=== PATIENT | female | born 1995 | race Caucasian/White ===

== ENCOUNTER 2017-05-12 16:35 | Emergency (ER) | payer OTHER ==
[2017-05-12 16:35] VITALS: BMI 25.4
[2017-05-12 17:02] VITALS: BP 125/70; PULSE 72; RESP 18; TEMP 98.3; O2SAT 98
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
== END 2017-05-12 18:10 | disposition home or self-care (01) ==
LOC: H.ER 16:35
DX: T30.0 Burn of unspecified body region, unspecified degree (principal)

== ENCOUNTER 2017-08-13 18:16 | Emergency (ER) | payer OTHER ==
[2017-08-13 18:17] VITALS: BMI 25.4
[2017-08-13 18:32] VITALS: BP 137/77; PULSE 54; RESP 18; TEMP 98.2; O2SAT 100
== END 2017-08-13 20:40 | disposition home or self-care (01) ==
LOC: H.ER 18:16
DX: S49.92XA Unspecified injury of left shoulder and upper arm, initial encounter (principal); X50.9XXA Other and unspecified overexertion or strenuous movements or postures, initial encounter; Y99.0 Civilian activity done for income or pay
CPT/HCPCS: 73030; 81025; 96372; 99284; J1885

== ENCOUNTER 2017-12-08 10:29 | Emergency (ER) | payer OTHER ==
[2017-12-08 10:30] VITALS: BMI 25.4
[2017-12-08 11:07] VITALS: BP 140/62; PULSE 58; RESP 16; TEMP 98.7; O2SAT 99
--- NOTE | 2017-12-08 12:15 | ED PDOC ---
HPI: CCC, URI, Sore Throat Time Seen by Provider: 12/08/17 11:19 Chief Complaint (Nursing): ENT Problem Chief Complaint (Provider): Cough, throat pain History Per: Patient History/Exam Limitations: no limitations Have you had recent travel within the past 21 days to any of the following countries: [place], [place], [place] or [place]?: No Onset/Duration Of Symptoms: Days Current Symptoms Are (Timing): Still Present Location Of Pain: Throat Sick Contacts (Context): Family Member(s) Associated Symptoms: Cough Additional Complaint(s): 22yo female with complaints of cough, sore throat and nasal congestion since last night. Patient states her son had similar symptoms and was given antibiotics. She denies any associated fever, chest pain, shortness of breath or hemoptysis. Patient has no other medical complaints. Past Medical History Reviewed: Historical Data, Nursing Documentation, Vital Signs Vital Signs: Last Vital Signs Temp 98.7 F 12/08/17 11:05 Pulse 58 L 12/08/17 11:05 Resp 16 12/08/17 11:05 BP 140/62 12/08/17 11:05 Pulse Ox 99 12/08/17 12:18 - Medical History PMH: Kidney Stones - Surgical History Surgical History: No Surg Hx - Family History Family History: States: Unknown Family Hx - Living Arrangements Living Arrangements: With Family - Immunization History Hx Tetanus Toxoid Vaccination: Yes - Home Medications Home Medications: Ambulatory Orders Medication Instructions Recorded Ibuprofen [Motrin] 600 mg PO Q6 PRN #10 tab 03/13/15 Ibuprofen [Motrin Tab] 800 mg PO Q8 PRN #20 tab 06/28/15 Ciprofloxacin/Ciprofloxa HCl 500 mg PO Q12 #14 tab 12/30/15 [Ciprofloxacin] traMADol [Ultram] 50 mg PO Q6 #16 tab 12/30/15 Ibuprofen [Motrin] 400 mg PO Q6 #30 tab 05/05/16 Tamsulosin HCl [Flomax] 0.4 mg PO DAILY #12 cap.er.24h 05/05/16 Dextromethorphan HBr [Cough 15 mg PO BID #16 capsule 08/04/16 Control] Ibuprofen [Motrin Tab] 800 mg PO Q6H PRN #20 tab 05/12/17 Silver Sulfadiazine 1% 20 gm 1 ea TOP BID #2 tube 05/12/17 [Silvadene] Albuterol HFA [Ventolin HFA 90 2 puff IH [id number] PRN #1 inhaler 08/13/17 mcg/actuation (8 g)] Azithromycin [Zithromax Tri-Mino] 500 mg PO DAILY #3 tablet 08/13/17 Naproxen 1 tab PO Q12 PRN #14 tab 08/13/17 Promethazine/Codeine 5 ml PO Q12 PRN #100 ml 08/13/17 [Codeine/Promethazine 10 MG/5 Ml-6.25 MG/5 Ml] predniSONE [predniSONE Tab] 2 tab PO DAILY #10 tab 08/13/17 Albuterol HFA [Ventolin HFA 90 2 puff IH [id number] PRN #1 inhaler 09/09/17 mcg/actuation (8 g)] Promethazine/Codeine 5 ml PO Q12 PRN #100 ml 09/09/17 [Codeine/Promethazine 10 MG/5 Ml-6.25 MG/5 Ml] predniSONE [predniSONE Tab] 2 tab PO DAILY #10 tab 09/09/17 Silver Sulfadiazine 1% 20 gm 1 ea TOP BID #2 tube 09/13/17 [Silvadene] Benzonatate [Tessalon Perle] 100 mg PO Q8 PRN #10 capsule 12/08/17 Fluticasone Propionate [Flonase] 2 spr NS DAILY PRN #1 bottle 12/08/17 - Allergies Allergies/Adverse Reactions: Allergies Allergy/AdvReac Type Severity Reaction Status Date / Time strawberry Allergy RASH Verified 12/29/15 22:48 SEAFOOD Allergy RASH Uncoded 12/29/15 22:48 seafood Allergy RASH Uncoded 05/05/16 10:17 Review of Systems ROS Statement: Except As Marked, All Systems Reviewed And Found Negative Constitutional: Negative for: Fever, Chills ENT: Positive for: Throat Pain Cardiovascular: Negative for: Chest Pain Respiratory: Positive for: Cough. Negative for: Shortness of Breath, Hemoptysis Physical Exam - Reviewed Nursing Documentation Reviewed: Yes Vital Signs Reviewed: Yes - Physical Exam Appears: Positive for: Non-toxic, No Acute Distress Skin: Positive for: Normal Color Eye Exam: Positive for: EOMI, PERRL ENT: Positive for: Normal ENT Inspection. Negative for: Pharyngeal Erythema, Tonsillar Exudate, Tonsillar Swelling Neck: Positive for: Supple Cardiovascular/Chest: Positive for: Regular Rate, Rhythm Respiratory: Positive for: Normal Breath Sounds. Negative for: Wheezing Neurologic/Psych: Positive for: Alert, Oriented - ECG O2 Sat by Pulse Oximetry: 99 (RA) Pulse Ox Interpretation: Normal Medical Decision Making Medical Decision Making: Impression: URI Plan: -- Rapid Flu -- Rapid Strep Scribe Attestation: Documented by Rashida Man acting as a scribe for LEONARDO Hummel Provider Attestation: All medical record entries made by the Scribe were at my direction and personally dictated by me. I have reviewed the chart and agree that the record accurately reflects my personal performance of the history, physical exam, medical decision making, and the department course for this patient. I have also personally directed, reviewed, and agree with the discharge instructions and disposition. Disposition - Clinical Impression Clinical Impression: URI (upper respiratory infection) - Patient ED Disposition Is Patient to be Admitted: No - Disposition Referrals: [facility] [Outside] Disposition: Routine/Home Disposition Time: 13:30 Condition: STABLE Prescriptions: Benzonatate [Tessalon Perle] 100 mg PO Q8 PRN #10 capsule PRN Reason: Cough Fluticasone Propionate [Flonase] 2 spr NS DAILY PRN #1 bottle PRN Reason: Allergy Symptoms Instructions: Upper Respiratory Infection (ED) Forms: [employer] (Serbian) Print Language: UKRAINIAN
== END 2017-12-08 14:28 | disposition home or self-care (01) ==
LOC: H.ER 10:29
DX: J06.9 Acute upper respiratory infection, unspecified (principal)

== ENCOUNTER 2018-02-07 14:13 | Emergency (ER) | payer MEDICAID, OTHER ==
[2018-02-07 14:13] VITALS: BMI 25.4
[2018-02-07 14:19] VITALS: PULSE 78
--- NOTE | 2018-02-07 14:27 | ED PDOC ---
HPI: Female Pain Time Seen by Provider: 02/07/18 14:26 Chief Complaint (Nursing): Female Genitourinary Chief Complaint (Provider): abd pain History Per: Patient Additional Complaint(s): 22-year-old female with history of kidney stones presents with LLQ pain, left flank pain and urinary frequency for the past 2 days. She denies fever or chills. She is concerned she may be passing a kidney stone as she has history of same. Patient denies any nausea or vomiting. She has not taken any medicine for pain relief. PMD: Dr. Bart Veliz Past Medical History Reviewed: Historical Data, Nursing Documentation, Vital Signs Vital Signs: Last Vital Signs Temp 97.8 F 02/07/18 14:16 Pulse 78 02/07/18 14:16 Resp 18 02/07/18 14:16 BP 126/78 02/07/18 14:16 Pulse Ox 99 02/07/18 14:16 - Medical History PMH: Kidney Stones - Surgical History Other surgeries: right foot surgery - Family History Family History: States: Unknown Family Hx - Living Arrangements Living Arrangements: With Family - Social History Current smoker - smoking cessation education provided: Yes Alcohol: None Drugs: Denies - Immunization History Hx Tetanus Toxoid Vaccination: Yes - Home Medications Home Medications: Ambulatory Orders Medication Instructions Recorded Ibuprofen [Motrin] 600 mg PO Q6 PRN #10 tab 03/13/15 Ibuprofen [Motrin Tab] 800 mg PO Q8 PRN #20 tab 06/28/15 Ciprofloxacin/Ciprofloxa HCl 500 mg PO Q12 #14 tab 12/30/15 [Ciprofloxacin] traMADol [Ultram] 50 mg PO Q6 #16 tab 12/30/15 Ibuprofen [Motrin] 400 mg PO Q6 #30 tab 05/05/16 Tamsulosin HCl [Flomax] 0.4 mg PO DAILY #12 cap.er.24h 05/05/16 Dextromethorphan HBr [Cough 15 mg PO BID #16 capsule 08/04/16 Control] Ibuprofen [Motrin Tab] 800 mg PO Q6H PRN #20 tab 05/12/17 Silver Sulfadiazine 1% 20 gm 1 ea TOP BID #2 tube 05/12/17 [Silvadene] Albuterol HFA [Ventolin HFA 90 2 puff IH [id number] PRN #1 inhaler 08/13/17 mcg/actuation (8 g)] Azithromycin [Zithromax Tri-Mino] 500 mg PO DAILY #3 tablet 08/13/17 Naproxen 1 tab PO Q12 PRN #14 tab 08/13/17 Promethazine/Codeine 5 ml PO Q12 PRN #100 ml 08/13/17 [Codeine/Promethazine 10 MG/5 Ml-6.25 MG/5 Ml] predniSONE [predniSONE Tab] 2 tab PO DAILY #10 tab 08/13/17 Albuterol HFA [Ventolin HFA 90 2 puff IH [id number] PRN #1 inhaler 09/09/17 mcg/actuation (8 g)] Promethazine/Codeine 5 ml PO Q12 PRN #100 ml 09/09/17 [Codeine/Promethazine 10 MG/5 Ml-6.25 MG/5 Ml] predniSONE [predniSONE Tab] 2 tab PO DAILY #10 tab 09/09/17 Silver Sulfadiazine 1% 20 gm 1 ea TOP BID #2 tube 09/13/17 [Silvadene] Benzonatate [Tessalon Perle] 100 mg PO Q8 PRN #10 capsule 12/08/17 Fluticasone Propionate [Flonase] 2 spr NS DAILY PRN #1 bottle 12/08/17 Ibuprofen [Motrin] 600 mg PO Q6 PRN #15 tab 02/07/18 Levofloxacin [Levaquin] 500 mg PO DAILY #7 tablet 02/07/18 - Allergies Allergies/Adverse Reactions: Allergies Allergy/AdvReac Type Severity Reaction Status Date / Time strawberry Allergy RASH Verified 12/29/15 22:48 SEAFOOD Allergy RASH Uncoded 12/29/15 22:48 seafood Allergy RASH Uncoded 05/05/16 10:17 Review of Systems ROS Statement: Except As Marked, All Systems Reviewed And Found Negative Constitutional: Negative for: Fever, Chills Respiratory: Negative for: Cough Gastrointestinal: Positive for: Abdominal Pain. Negative for: Nausea, Vomiting , Diarrhea, Constipation, Melena, Hematochezia, Hematemesis, Rectal Pain Genitourinary Female: Positive for: Dysuria, Frequency, Hematuria. Negative for : Incontinence, Vaginal Discharge, Vaginal Bleeding Physical Exam - Reviewed Nursing Documentation Reviewed: Yes Vital Signs Reviewed: Yes - Physical Exam Appears: Positive for: Well, Non-toxic, No Acute Distress Skin: Negative for: Rash Eye Exam: Positive for: Normal appearance Cardiovascular/Chest: Positive for: Regular Rate, Rhythm Respiratory: Positive for: Normal Breath Sounds Gastrointestinal/Abdominal: Positive for: Soft, Tenderness (LLQ). Negative for : Distended, Guarding, Rebound Back: Positive for: L CVA Tenderness. Negative for: R CVA Tenderness Extremity: Positive for: Normal ROM Neurologic/Psych: Positive for: Alert, Oriented - Laboratory Results Result Diagrams: 02/07/18 14:45 02/07/18 14:45 Urine POC: Negative Urine dip results: Positive for: Leukocyte Esterase (moderate), Blood (moderate) , Nitrate (positive). Negative for: Ketones, Glucose, Bilirubin, Protein - ECG O2 Sat by Pulse Oximetry: 99 Pulse Ox Interpretation: Normal - Other Rad CT abd and pelvis without contrast X-Ray: Read By Radiologist X-Ray Interpretation: see below Medical Decision Making Medical Decision Makin22 year old with abd pain, flank pain and dysuria Plan: CBC CMP Blood cultures IVF IV toradol UA/Urine culture CT abd and pelvis without contrast U dip positive for nitrates and leukocytes - 1 gram rocephin given IV. CT: IMPRESSION: A punctate nonobstructing intrarenal calculus identified at the upper midpole left kidney with both kidneys otherwise unremarkable. Lack venous contrast limits evaluation. No perinephric reaction. Urinary bladder is mildly distended with the wall poorly evaluated. No radiodense urolithiasis in the urinary bladder or either ureter. No ascites, measure edema or bowel obstruction appreciated grossly. Study is limited evaluation outside of the concept of urolithiasis/obstructive uropathy due to lack of contrast agents. Other than solitary intrarenal calculus at the left kidney, exam not dramatically changed her prior unenhanced CT 12/30/2015. Patient aware of all diagnostic testing results. She states that she feels better after meds given in ED. Prescriptions given for Levaquin and Motrin. Advised fluids, rest and follow up with PMD in 2-3 days. Disposition - Clinical Impression Clinical Impression: UTI (urinary tract infection), Pyelonephritis - Patient ED Disposition Is Patient to be Admitted: No Counseled Patient/Family Regarding: Studies Performed, Diagnosis, Need For Followup, Rx Given - Disposition Referrals: Bart Veliz MD [Staff Provider] - Disposition: Routine/Home Disposition Time: 16:19 Condition: STABLE Additional Instructions: Take rx meds as directed. Drink plenty of fluids. Follow up in 2-3 days with primary care doctor. Prescriptions: Ibuprofen [Motrin] 600 mg PO Q6 PRN #15 tab PRN Reason: Pain, Moderate (4-7) Levofloxacin [Levaquin] 500 mg PO DAILY #7 tablet Instructions: Urinary Tract Infection, Adult (DC), Kidney Infection Forms: [employer] (Syriac) Results - Lab Results Lab Results: 02/07/18 02/07/18 02/07/18 14:45 14:45 14:45 WBC 14.1 H D RBC 4.68 Hgb 13.7 Hct 40.6 MCV 86.7 MCH 29.3 MCHC 33.7 RDW 12.8 Plt Count 232 MPV 10.4 Neut % (Auto) 74.5 Lymph % (Auto) 17.9 L [place] % (Auto) 6.2 Eos % (Auto) 0.9 Baso % (Auto) 0.5 Neut # (Auto) 10.5 H Lymph # (Auto) 2.5 [place] # (Auto) 0.9 H Eos # (Auto) 0.1 Baso # (Auto) 0.1 Sodium 141 Potassium 4.1 Chloride 105 Carbon Dioxide 23 Anion Gap 17 BUN 12 Creatinine 0.8 Est GFR ( Amer) > 60 Est GFR (Non-Af Amer) > 60 Random Glucose 114 H Calcium 9.3 Total Bilirubin 0.4 AST 21 ALT 26 Alkaline Phosphatase 49 Total Protein 7.2 Albumin 3.9 Globulin 3.3 Albumin/Globulin Ratio 1.2 Urine Color Yellow Urine Clarity Cloudy Urine pH 6.0 Ur Specific [place] 1.021 Urine Protein 100 Urine Glucose (UA) Neg Urine Ketones Negative Urine Blood Moderate Urine Nitrate Positive H Urine Bilirubin Negative Urine Urobilinogen 0.2-1.0 Ur Leukocyte Esterase Mod Urine RBC (Auto) 38 H Urine Microscopic WBC 239 H Ur Squamous Epith Cells 1 Urine Bacteria Occ H Hyaline Casts 0-2
[2018-02-07] MEDS ORDERED: Sodium Chloride 0.9% 1,000 ML IV STA (14:52)
[2018-02-07 15:16] LABS: BASO # 0.1 K/uL (0.0-0.2); BASO % 0.5 % (0.0-2.0); EOS # 0.1 K/uL (0.0-0.7); EOS % 0.9 % (0.0-4.0); HEMOGLOBIN 13.7 g/dL (12.0-16.0); LYMPH # 2.5 K/uL (1.0-4.3); LYMPH % 17.9 % (20.0-40.0); MEAN CELL VOLUME 86.7 fl (81.0-99.0); MEAN CORPUSCULAR HEMOGLOBIN 29.3 pg (27.0-31.0); MEAN CORPUSCULAR HGB CONC 33.7 g/dL (33.0-37.0); MEAN PLATELET VOLUME 10.4 fl (7.2-11.7); MONO # 0.9 K/uL (0.0-0.8); MONO % 6.2 % (0.0-10.0); NEUT # 10.5 K/uL (1.8-7.0); NEUT % 74.5 % (50.0-75.0); RBC 4.68 Mil/uL (3.80-5.20); RED CELL DISTRIBUTION WIDTH 12.8 % (11.5-14.5); WHITE BLOOD COUNT 14.1 K/uL (4.8-10.8)
[2018-02-07 15:25] LABS: ALB/GLOB RATIO 1.2 (1.0-2.1); ALBUMIN 3.9 g/dL (3.5-5.0); ALT/SGPT 26 U/L (9-52); AST/SGOT 21 U/L (14-36); BLOOD UREA NITROGEN 12 mg/dl (7-17); CALCIUM 9.3 mg/dL (8.4-10.2); GFR AFRICAN-AMERICAN > 60; GFR NON-AFRICAN AMERICAN > 60; SQUAMOUS EPITHIAL 1 /hpf (0-5); URINE BACTERIA OCC (<OCC); URINE BILIRUBIN NEGATIVE (NEGATIVE); URINE BLOOD MODERATE (NEGATIVE); URINE CLARITY CLOUDY (Clear); URINE COLOR YELLOW (YELLOW); URINE GLUCOSE (UA) NEG (Normal); URINE HYALINE CAST 0-2 /hpf (0-2); URINE LEUKOCYTE ESTERASE MOD Leu/uL (Negative); URINE PROTEIN 100 mg/dL (NEGATIVE); URINE UROBILINOGEN 0.2-1.0 mg/dL (0.2-1.0)
--- NOTE | 2018-02-07 16:03 | CT ---
PROCEDURE: CT Abdomen and Pelvis without intravenous contrast HISTORY: flank pain, hematuria COMPARISON: Unenhanced abdomen pelvis CT examination 12/30/2015 TECHNIQUE: Helical CT of the abdomen and pelvis was performed without oral or intravenous contrast as per referring physician request. Contrast Dose: None Radiation dose: Total exam DLP = 579.48 mGy-cm. This CT exam was performed using one or more of the following dose reduction techniques: Automated exposure control, adjustment of the mA and/or kV according to patient size, and/or use of iterative reconstruction technique. FINDINGS: LOWER THORAX: Unremarkable. LIVER: Unremarkable. No gross lesion or ductal dilatation. GALLBLADDER AND BILE DUCTS: Unremarkable. PANCREAS: Unremarkable. No gross lesion or ductal dilatation. SPLEEN: Unremarkable. ADRENALS: Unremarkable. No mass. KIDNEYS AND URETERS: The right kidney appears unremarkable as imaged. There is a punctate intrarenal calculi identified at the upper midpole left kidney best seen image 65 series 3. This is a nonobstructive calculus with no definite additional radiodense urolithiasis bilaterally. No left perinephric reaction or hydronephrosis. The bilateral ureters appear normal in caliber with the urinary bladder appearing mildly distended and otherwise limited evaluation due to its lack of adequate distention. Mural thickening is not completely excluded though this is not favored. Clinically correlate further. . VASCULATURE: Unremarkable. No aortic aneurysm. BOWEL: Unremarkable. No obstruction. No gross mural thickening. APPENDIX: Unremarkable. Normal appendix. PERITONEUM: Unremarkable. No free fluid. No free air. LYMPH NODES: Unremarkable. No enlarged lymph nodes. BLADDER: As above in renal section. REPRODUCTIVE: Unremarkable. BONES: No acute fracture. OTHER FINDINGS: None. IMPRESSION: A punctate nonobstructing intrarenal calculus identified at the upper midpole left kidney with both kidneys otherwise unremarkable. Lack venous contrast limits evaluation. No perinephric reaction. Urinary bladder is mildly distended with the wall poorly evaluated. No radiodense urolithiasis in the urinary bladder or either ureter. No ascites, measure edema or bowel obstruction appreciated grossly. Study is limited evaluation outside of the concept of urolithiasis/obstructive uropathy due to lack of contrast agents. Other than solitary intrarenal calculus at the left kidney, exam not dramatically changed her prior unenhanced CT 12/30/2015.
[2018-02-07] MEDS ORDERED: cefTRIAXone (Rocephin) 1 gm Inj ONE (16:25)
[2018-02-07 17:43] VITALS: BP 128/78; RESP 19; TEMP 97; O2SAT 98
== END 2018-02-07 17:47 | disposition home or self-care (01) ==
LOC: H.ER 14:13
DX: N39.0 Urinary tract infection, site not specified (principal); N12 Tubulo-interstitial nephritis, not specified as acute or chronic
CPT/HCPCS: 74176; 80053; 81003; 81025; 85025; 87040; 87086; 87181; 99283; J0696; J1885; J7040

== ENCOUNTER 2018-05-01 21:54 | Emergency (ER) | payer MEDICAID, OTHER ==
[2018-05-01 21:54] VITALS: BMI 25.4
[2018-05-01 22:02] VITALS: RESP 18
--- NOTE | 2018-05-01 22:03 | ED PDOC ---
HPI: General Adult Time Seen by Provider: 05/01/18 22:03 Chief Complaint (Nursing): Back Pain Chief Complaint (Provider): neck pain History Per: Patient Additional Complaint(s): 22 year old female presents with pain and muscle spasm to neck s/p falling asleep last night on her boyfriend's arm. Patient woke up today with pain and stiffness. She took 2 800 mg motrin today but this did not help. Patient also applied ice to affected area but this did not help either. No associated headache, dizziness or vision changes. PMD: Dr. Bart Veliz Past Medical History Reviewed: Historical Data, Nursing Documentation, Vital Signs Vital Signs: Last Vital Signs Temp 97.6 F 05/01/18 21:58 Pulse 66 05/01/18 21:58 Resp 18 05/01/18 21:58 BP Pulse Ox 98 05/01/18 22:10 - Medical History PMH: Kidney Stones - Surgical History Other surgeries: foot surgery - Family History Family History: States: No Known Family Hx - Living Arrangements Living Arrangements: With Family - Social History Current smoker - smoking cessation education provided: Yes Alcohol: None Drugs: Denies - Immunization History Hx Tetanus Toxoid Vaccination: Yes - Home Medications Home Medications: Ambulatory Orders Medication Instructions Recorded Ibuprofen [Motrin] 600 mg PO Q6 PRN #10 tab 03/13/15 Ibuprofen [Motrin Tab] 800 mg PO Q8 PRN #20 tab 06/28/15 Ciprofloxacin/Ciprofloxa HCl 500 mg PO Q12 #14 tab 12/30/15 [Ciprofloxacin] traMADol [Ultram] 50 mg PO Q6 #16 tab 12/30/15 Ibuprofen [Motrin] 400 mg PO Q6 #30 tab 05/05/16 Tamsulosin HCl [Flomax] 0.4 mg PO DAILY #12 cap.er.24h 05/05/16 Dextromethorphan HBr [Cough 15 mg PO BID #16 capsule 08/04/16 Control] Ibuprofen [Motrin Tab] 800 mg PO Q6H PRN #20 tab 05/12/17 Silver Sulfadiazine 1% 20 gm 1 ea TOP BID #2 tube 05/12/17 [Silvadene] Albuterol HFA [Ventolin HFA 90 2 puff IH [id number] PRN #1 inhaler 08/13/17 mcg/actuation (8 g)] Azithromycin [Zithromax Tri-Mino] 500 mg PO DAILY #3 tablet 08/13/17 Naproxen 1 tab PO Q12 PRN #14 tab 08/13/17 Promethazine/Codeine 5 ml PO Q12 PRN #100 ml 08/13/17 [Codeine/Promethazine 10 MG/5 Ml-6.25 MG/5 Ml] predniSONE [predniSONE Tab] 2 tab PO DAILY #10 tab 08/13/17 Albuterol HFA [Ventolin HFA 90 2 puff IH [id number] PRN #1 inhaler 09/09/17 mcg/actuation (8 g)] Promethazine/Codeine 5 ml PO Q12 PRN #100 ml 09/09/17 [Codeine/Promethazine 10 MG/5 Ml-6.25 MG/5 Ml] predniSONE [predniSONE Tab] 2 tab PO DAILY #10 tab 09/09/17 Silver Sulfadiazine 1% 20 gm 1 ea TOP BID #2 tube 09/13/17 [Silvadene] Benzonatate [Tessalon Perle] 100 mg PO Q8 PRN #10 capsule 12/08/17 Fluticasone Propionate [Flonase] 2 spr NS DAILY PRN #1 bottle 12/08/17 Ibuprofen [Motrin] 600 mg PO Q6 PRN #15 tab 02/07/18 Levofloxacin [Levaquin] 500 mg PO DAILY #7 tablet 02/07/18 Diclofenac Epolamine [Flector] 1 each TD BID #30 patch 05/01/18 Metaxalone [Skelaxin] 800 mg PO TID PRN #20 tablet 05/01/18 traMADol [Ultram] 50 mg PO Q6H PRN #15 tab 05/01/18 - Allergies Allergies/Adverse Reactions: Allergies Allergy/AdvReac Type Severity Reaction Status Date / Time strawberry Allergy RASH Verified 05/01/18 21:58 SEAFOOD Allergy RASH Uncoded 05/01/18 21:58 seafood Allergy RASH Uncoded 05/01/18 21:58 Review of Systems ROS Statement: Except As Marked, All Systems Reviewed And Found Negative Constitutional: Negative for: Fever Cardiovascular: Negative for: Chest Pain Respiratory: Negative for: Cough Gastrointestinal: Negative for: Nausea, Vomiting Musculoskeletal: Positive for: Neck Pain Neurological: Negative for: Headache, Dizziness Physical Exam - Reviewed Nursing Documentation Reviewed: Yes Vital Signs Reviewed: Yes - Physical Exam Appears: Positive for: Well, Non-toxic, No Acute Distress Skin: Positive for: Normal Color. Negative for: Rash Eye Exam: Positive for: Normal appearance Neck: Positive for: Pain On Movement Of Neck (Palpable muscle spasm and tenderness to right lateral paraspinal region with decreased range of motion of cervical spine, no midline tenderness or step) Cardiovascular/Chest: Positive for: Regular Rate, Rhythm Respiratory: Positive for: Normal Breath Sounds. Negative for: Wheezing, Respiratory Distress Back: Negative for: L CVA Tenderness, R CVA Tenderness, Vertebral Tenderness Neurologic/Psych: Positive for: Alert, Oriented - Laboratory Results Urine POC: Negative - ECG O2 Sat by Pulse Oximetry: 98 Pulse Ox Interpretation: Normal Medical Decision Making Medical Decision Making: Impression: torticollis Plan: test IM toradol PO tylenol 975 mg PO valium 5 mg PO Tramdol 50 mg Patient states neck feels more relaxed after meds but she still has slight pain. Lidoderm patch applied. Patient advised to apply warm compresses to affected area. Rx given for flector patch, skelaxin and tramadol. Advised rest PMD follow up in 2-3 days. Disposition - Clinical Impression Clinical Impression: Torticollis, acute - Patient ED Disposition Is Patient to be Admitted: No Counseled Patient/Family Regarding: Studies Performed, Diagnosis, Need For Followup, Rx Given - Disposition Referrals: Bart Veliz MD [Family Provider] - Ameena Nguyen MD [Staff Provider] - Disposition Time: 22:46 Condition: IMPROVED Additional Instructions: Take rx meds as directed as needed for pain Apply warm compresses to affected area. Follow up with primary care doctor or with orthopedist for any persistent symptoms Prescriptions: Diclofenac Epolamine [Flector] 1 each TD BID #30 patch Metaxalone [Skelaxin] 800 mg PO TID PRN #20 tablet PRN Reason: Muscle Spasm traMADol [Ultram] 50 mg PO Q6H PRN #15 tab PRN Reason: Pain, Moderate (4-7) Instructions: Torticollis, Adult, Neck Stretches Forms: [employer] (Azeri), [facility] ED School/Work Excuse
[2018-05-01] MEDS ORDERED: Lidocaine 5% Patch TD STA (22:42)
[2018-05-01] MEDS ORDERED: Lidocaine 5% Patch TD ONE (22:50)
[2018-05-01 23:22] VITALS: BP 118/70; PULSE 74; TEMP 98.1; O2SAT 100
== END 2018-05-01 23:21 | disposition home or self-care (01) ==
LOC: H.ER 21:54
DX: M43.6 Torticollis (principal)
CPT/HCPCS: 81025; 96372; 99283; J1885

== ENCOUNTER 2018-06-28 17:29 | Emergency (ER) | payer MEDICAID, OTHER ==
[2018-06-28 17:29] VITALS: BMI 25.4
[2018-06-28 17:35] VITALS: BP 136/82; PULSE 82; RESP 16; TEMP 98.1; O2SAT 99
--- NOTE | 2018-06-28 19:01 | ED PDOC ---
HPI: Female Pain Chief Complaint (Provider): "My stomach hurts and I started bleeding this morning" History Per: Patient History/Exam Limitations: no limitations Onset/Duration Of Symptoms: Hrs Current Symptoms Are (Timing): Still Present Severity: Moderate Pain Scale Rating Of: 10 Quality Of Discomfort: Sharp, Cramping Associated Symptoms: Back Pain. denies: Fever, Chills, Nausea, Vomiting, Diarrhea, Constipation Alleviating Factors: None Additional History Per: Patient Additional Complaint(s): 22 y/o female w/ pmhx significant for kidney stones and chlamydia c/o intermittent suprapubic pain and vaginal bleeding that started this morning. The pain sharp/crampy, 10/10 in severity, and radiates to the left flank, worsens during sexual activity. Denies alleviating factors. She denies nausea, vomiting, diarrhea, constipation. She states that she had white discharge 1 week prior; denies foul odor. LMP June 04, 2018. She is not currently sexually active. Abnormal Vaginal Bleeding: Yes Last Menstral Period: June 04, 2018 : 1 Para: 1 Miscarriage: 0 <Rehana Michael - Last Filed: 06/28/18 19:14> <Ryder Uriostegui III - Last Filed: 06/30/18 14:02> Time Seen by Provider: 06/28/18 18:18 Chief Complaint (Nursing): Female Genitourinary Supervising Attending Note - Attestation: I have personally seen and examined this patient.: Yes I have fully participated in the care of the patient.: Yes I have reviewed all pertinent clinical information, including history, physical exam and plan: Yes - Notes: Notes:: pt seen and examined w patient w resident agree w findings, i performed pelvic w rating specialist EDT <Ryder Uriostegui III - Last Filed: 06/30/18 14:02> Past Medical History Vital Signs: Last Vital Signs Temp 98.1 F 06/28/18 17:32 Pulse 82 06/28/18 17:32 Resp 16 06/28/18 17:32 BP 136/82 06/28/18 17:32 Pulse Ox 99 06/28/18 17:32 - Medical History PMH: Asthma, Kidney Stones - Family History Family History: States: Unknown Family Hx - Social History Current smoker - smoking cessation education provided: Yes (1/2 ppd X 4 years) Alcohol: Social Drugs: Denies - Immunization History Hx Tetanus Toxoid Vaccination: Yes <Rehana Michael - Last Filed: 06/28/18 19:14> Vital Signs: Last Vital Signs Temp 98.1 F 06/28/18 17:32 Pulse 82 06/28/18 17:32 Resp 16 06/28/18 17:32 BP 136/82 06/28/18 17:32 Pulse Ox 99 06/28/18 19:18 <Ryder Uriostegui III - Last Filed: 06/30/18 14:02> - Home Medications Home Medications: Ambulatory Orders Medication Instructions Recorded Ibuprofen [Motrin] 600 mg PO Q6 PRN #10 tab 03/13/15 Ibuprofen [Motrin Tab] 800 mg PO Q8 PRN #20 tab 06/28/15 Ciprofloxacin/Ciprofloxa HCl 500 mg PO Q12 #14 tab 12/30/15 [Ciprofloxacin] traMADol [Ultram] 50 mg PO Q6 #16 tab 12/30/15 Ibuprofen [Motrin] 400 mg PO Q6 #30 tab 05/05/16 Tamsulosin HCl [Flomax] 0.4 mg PO DAILY #12 cap.er.24h 05/05/16 Dextromethorphan HBr [Cough 15 mg PO BID #16 capsule 08/04/16 Control] Ibuprofen [Motrin Tab] 800 mg PO Q6H PRN #20 tab 05/12/17 Silver Sulfadiazine 1% 20 gm 1 ea TOP BID #2 tube 05/12/17 [Silvadene] Albuterol HFA [Ventolin HFA 90 2 puff IH [id number] PRN #1 inhaler 08/13/17 mcg/actuation (8 g)] Azithromycin [Zithromax Tri-Mino] 500 mg PO DAILY #3 tablet 08/13/17 Naproxen 1 tab PO Q12 PRN #14 tab 08/13/17 Promethazine/Codeine 5 ml PO Q12 PRN #100 ml 08/13/17 [Codeine/Promethazine 10 MG/5 Ml-6.25 MG/5 Ml] predniSONE [predniSONE Tab] 2 tab PO DAILY #10 tab 08/13/17 Albuterol HFA [Ventolin HFA 90 2 puff IH [id number] PRN #1 inhaler 09/09/17 mcg/actuation (8 g)] Promethazine/Codeine 5 ml PO Q12 PRN #100 ml 09/09/17 [Codeine/Promethazine 10 MG/5 Ml-6.25 MG/5 Ml] predniSONE [predniSONE Tab] 2 tab PO DAILY #10 tab 09/09/17 Silver Sulfadiazine 1% 20 gm 1 ea TOP BID #2 tube 09/13/17 [Silvadene] Benzonatate [Tessalon Perle] 100 mg PO Q8 PRN #10 capsule 12/08/17 Fluticasone Propionate [Flonase] 2 spr NS DAILY PRN #1 bottle 12/08/17 Ibuprofen [Motrin] 600 mg PO Q6 PRN #15 tab 02/07/18 Levofloxacin [Levaquin] 500 mg PO DAILY #7 tablet 02/07/18 Diclofenac Epolamine [Flector] 1 each TD BID #30 patch 05/01/18 Metaxalone [Skelaxin] 800 mg PO TID PRN #20 tablet 05/01/18 traMADol [Ultram] 50 mg PO Q6H PRN #15 tab 05/01/18 Ciprofloxacin [Cipro] 500 mg PO BID #14 tab 06/28/18 Naproxen [Naprosyn] 500 mg PO BID PRN #14 tablet 06/28/18 - Allergies Allergies/Adverse Reactions: Allergies Allergy/AdvReac Type Severity Reaction Status Date / Time strawberry Allergy RASH Verified 06/28/18 17:32 SEAFOOD Allergy RASH Uncoded 06/28/18 17:32 seafood Allergy RASH Uncoded 06/28/18 17:32 Review of Systems Constitutional: Positive for: Weakness, Malaise. Negative for: Fever Cardiovascular: Negative for: Palpitations Respiratory: Negative for: Shortness of Breath Gastrointestinal: Positive for: Abdominal Pain. Negative for: Nausea, Vomiting , Diarrhea, Constipation Genitourinary Female: Positive for: Vaginal Discharge, Vaginal Bleeding, Pelvic Pain. Negative for: Dysuria, Frequency, Incontinence Musculoskeletal: Positive for: Back Pain Neurological: Positive for: Numbness <Rehana Michael - Last Filed: 06/28/18 19:14> Physical Exam - Reviewed Nursing Documentation Reviewed: Yes Vital Signs Reviewed: Yes - Physical Exam Appears: Positive for: No Acute Distress Skin: Positive for: Normal Color, Warm, Dry. Negative for: Diaphoresis Cardiovascular/Chest: Positive for: Regular Rate, Rhythm. Negative for: Bradycardia, Tachycardia Respiratory: Positive for: Normal Breath Sounds Gastrointestinal/Abdominal: Positive for: Bowel Sounds, Soft, Tenderness. Negative for: Distended, Guarding, Rebound Back: Positive for: L CVA Tenderness. Negative for: R CVA Tenderness Extremity: Negative for: Tenderness, Pedal Edema, Calf Tenderness Lymphatic: Negative for: Adenopathy <Rehana Michael - Last Filed: 06/28/18 19:14> - Laboratory Results Result Diagrams: 06/28/18 19:07 Urine POC: Negative - ECG O2 Sat by Pulse Oximetry: 99 - Progress ED Course And Treament: Assessment: 22 y/o female c/o suprapubic pain. Plan: Urine Dipstick/UA CBC/CMP Urine hcg- negative pelvic exam Transvaginal u/s Abd/pelvic CT w/o contrast <Rehana Michael - Last Filed: 06/28/18 19:14> - Laboratory Results Result Diagrams: 06/28/18 19:07 06/28/18 19:07 <Ryder Uriostegui III - Last Filed: 06/30/18 14:02> Medical Decision Making Medical Decision Making: attending note Seen and examined w resident Pelvic exam trace blood no discharge, ?polyp mass on cervix approx 0.5cm nonfriable at 11:00, os closed Minimal CMT Explained mandatory need for followup w [facility] as lesion concerning and may need biospy EXAM: US Pelvis, Transvaginal CLINICAL HISTORY: 22 years old, female; Pain; Pelvic pain; Additional info: Pelvic pain l flank pain TECHNIQUE: Real-time transvaginal pelvic ultrasound (complete) with image documentation. Transvaginal imaging was used for better evaluation of the endometrium and adnexa. COMPARISON: CT - ABD PELVIS W/O PO OR IV CONT 12/30/2015 1:49 AM FINDINGS: Uterus/cervix: Unremarkable. Normal endometrial stripe thickness is 7 mm. No myometrial mass. Uterus measures 7.8 cm x 4.2 cm x 5.1 cm Right ovary: Unremarkable. No mass. Normal blood flow. 3 cm x 1.6 cm x 1.4 cm Left ovary: Unremarkable. No mass. Normal blood flow. 2 cm x 1.2 cm x 2 cm Free fluid: A small volume of free fluid is seen around the uterus. IMPRESSION: Normal pelvic ultrasound. Thank you for allowing us to participate in the care of your patient. Dictated and Authenticated by: Amador Mendoza MD 06/28/2018 7:50 PM Eastern Time ([place] & [place]) ct: IMPRESSION: 1. 3 mm nonobstructing left renal stone. No hydronephrosis. 2. There are a few prominent right lower quadrant mesenteric lymph nodes. Although nonspecific, findings can be seen with mesenteric adenitis. Thank you for allowing us to participate in the care of your patient. Dictated and Authenticated by: Dmitry Thompson MD 06/28/2018 8:10 PM Eastern Time ([place] & [place]) <Ryder Uriostegui III - Last Filed: 06/30/18 14:02> Disposition <Rehana Michael - Last Filed: 06/28/18 19:14> - Patient ED Disposition Is Patient to be Admitted: No Counseled Patient/Family Regarding: Studies Performed, Diagnosis - Disposition Disposition: Routine/Home Disposition Time: 20:20 <Ryder Uriostegui III - Last Filed: 06/30/18 14:02> - Clinical Impression Clinical Impression: Pelvic pain, Kidney stone - Disposition [facility] Condition: STABLE Additional Instructions: FOLLOWUP WITH [facility] FOR FULL EXAM AND POSSIBLE CERVICAL BIOPSY. RETURN TO ER FOR ANY WORSE OR NEW SYMPTOMS. STD RESULTS AVAILABLE IN 2-3 DAYS. YOU WILL BE CALLED IF POSITIVE. Prescriptions: Ciprofloxacin [Cipro] 500 mg PO BID #14 tab Naproxen [Naprosyn] 500 mg PO BID PRN #14 tablet PRN Reason: Pain, Moderate (4-7) Instructions: Kidney Stones in Adults, Acute Pelvic Pain (DC) Forms: [employer] (Vietnamese)
[2018-06-28 19:11] LABS: BASO # 0.1 K/uL (0.0-0.2); BASO % 0.8 % (0.0-2.0); EOS # 0.1 K/uL (0.0-0.7); EOS % 1.1 % (0.0-4.0); HEMOGLOBIN 14.4 g/dL (12.0-16.0); LYMPH # 2.8 K/uL (1.0-4.3); LYMPH % 22.6 % (20.0-40.0); MEAN CELL VOLUME 87.5 fl (81.0-99.0); MEAN CORPUSCULAR HEMOGLOBIN 29.8 pg (27.0-31.0); MEAN PLATELET VOLUME 10.5 fl (7.2-11.7); MONO # 0.9 K/uL (0.0-0.8); MONO % 7.5 % (0.0-10.0); NEUT # 8.6 K/uL (1.8-7.0); RBC 4.83 Mil/uL (3.80-5.20); RED CELL DISTRIBUTION WIDTH 13.3 % (11.5-14.5); WHITE BLOOD COUNT 12.6 K/uL (4.8-10.8)
[2018-06-28 19:29] LABS: SQUAMOUS EPITHIAL 1 /hpf (0-5); URINE BILIRUBIN NEGATIVE (NEGATIVE); URINE BLOOD NEGATIVE (NEGATIVE); URINE CLARITY SLIGHTY-CLOUDY (Clear); URINE COLOR YELLOW (YELLOW); URINE GLUCOSE (UA) NEG (Normal); URINE LEUKOCYTE ESTERASE NEG Leu/uL (Negative); URINE PROTEIN NEGATIVE (NEGATIVE); URINE UROBILINOGEN 0.2-1.0 mg/dL (0.2-1.0)
[2018-06-28 19:41] LABS: ALB/GLOB RATIO 1.5 (1.0-2.1); ALBUMIN 4.2 g/dL (3.5-5.0); ALT/SGPT 32 U/L (9-52); AST/SGOT 38 U/L (14-36); BLOOD UREA NITROGEN 13 mg/dl (7-17); CALCIUM 9.6 mg/dL (8.4-10.2); GFR NON-AFRICAN AMERICAN > 60
--- NOTE | 2018-06-29 11:22 | US ---
Date of service: 06/28/2018 HISTORY: pelvic pain L flank pain COMPARISON: None available. TECHNIQUE: Transvaginal pelvic ultrasound was performed. FINDINGS: UTERUS: Measures 7.8 x 4.2 x 5.1 cm. Retroverted, normal in size and appearance. No fibroid or other mass lesion seen. ENDOMETRIUM: Measures 7.0 mm in diameter. Normal in appearance. CERVIX: No cervical abnormality identified. RIGHT OVARY: Measures 3.1 x 1.6 x 1.4 cm. No solid mass. Normal flow. LEFT OVARY: Measures 2.0 x 1.2 x 2.0 cm. No solid mass. Normal flow. FREE FLUID: Small amount of free fluid in the cul de sac is likely physiologic. . OTHER FINDINGS: None. IMPRESSION: Normal pelvic ultrasound. A preliminary report was provided by [employer] services.
--- NOTE | 2018-06-29 12:23 | CT ---
Date of service: 06/28/2018 PROCEDURE: CT Abdomen and Pelvis without intravenous contrast HISTORY: L flank pain and pelvic pain COMPARISON: 02/07/2018. TECHNIQUE: CT scan of the abdomen and pelvis was performed without administration of intravenous contrast. Oral contrast was not administered. Coronal and sagittal reformatted images were obtained. . Radiation dose: Total exam DLP = 658.81 mGy-cm. This CT exam was performed using one or more of the following dose reduction techniques: Automated exposure control, adjustment of the mA and/or kV according to patient size, and/or use of iterative reconstruction technique. FINDINGS: LOWER THORAX: The visualized lungs are clear. LIVER: Normal in size. No intrahepatic ductal dilatation. GALLBLADDER AND BILE DUCTS: No calcified gallstones. No biliary dilatation PANCREAS: Normal in size. No ductal dilatation. SPLEEN: Normal in size. ADRENALS: Normal in size. No discrete nodule. KIDNEYS AND URETERS: Normal in size hydronephrosis. No right nephrolithiasis. There is a punctate nonobstructing stone in the upper pole of the left kidney VASCULATURE: No aortic aneurysm. BOWEL: The small bowel loops are normal in caliber. The colon is normal in size. No bowel dilatation or wall thickening. No bowel obstruction. APPENDIX: Normal appendix. PERITONEUM: No free fluid. No free air. LYMPH NODES: There are small subcentimeter lymph nodes in the right lower quadrant. BLADDER: Partially decompressed. REPRODUCTIVE: The uterus is normal in size BONES: No acute fracture. Within normal limits for the patient's age. OTHER FINDINGS: None. IMPRESSION: Punctate nonobstructing stone in the upper pole of the left kidney. No hydronephrosis or obstructive uropathy. Few small subcentimeter right lower quadrant mesenteric lymph nodes may be reactive or represent nonspecific adenitis. A preliminary report was provided by [employer].
== END 2018-06-28 20:51 | disposition home or self-care (01) ==
LOC: H.ER 17:29
DX: R10.2 Pelvic and perineal pain (principal); N20.0 Calculus of kidney

== ENCOUNTER 2018-08-10 13:56 | Emergency (ER) | payer OTHER ==
[2018-08-10 13:57] VITALS: BMI 25.4
--- NOTE | 2018-08-10 15:59 | ED PDOC ---
HPI: CCC, URI, Sore Throat Chief Complaint (Provider): Cough, Cold, Congestion History Per: Patient History/Exam Limitations: no limitations Onset/Duration Of Symptoms: Days Current Symptoms Are (Timing): Still Present Associated Symptoms: Sore Throat, Cough Additional Complaint(s): 22 year old female with kidney stone and asthma presents to the ER for an evaluation of cough, sore throat and back pain onset for one day. Patient reports her son also has URI symptoms. Pt. has not received her flu shot. Also states her appetite has decreased but she has normal fluid intake. Denies any abdominal pain, sweats or incontinence. PMD: Bee Jerry <Nilam Briggs - Last Filed: 08/10/18 20:04> <Ok Mercado - Last Filed: 08/11/18 16:51> Time Seen by Provider: 08/10/18 14:13 Chief Complaint (Nursing): Cough, Cold, Congestion Past Medical History Reviewed: Historical Data, Nursing Documentation, Vital Signs Vital Signs: Last Vital Signs Temp 98.0 F 08/10/18 14:06 Pulse 71 08/10/18 14:06 Resp 16 08/10/18 14:06 BP 123/71 08/10/18 14:06 Pulse Ox 100 08/10/18 14:06 - Medical History PMH: Asthma, Kidney Stones - Family History Family History: States: Unknown Family Hx - Social History Current smoker - smoking cessation education provided: Yes (Heavy Smoker > 10 Cigarettes Daily) Alcohol: Social Drugs: Denies - Immunization History Hx Tetanus Toxoid Vaccination: Yes <Nilam Briggs S - Last Filed: 08/10/18 20:04> Vital Signs: Last Vital Signs Temp 98 F 08/10/18 16:09 Pulse 89 08/10/18 16:09 Resp 18 08/10/18 16:09 BP 112/70 08/10/18 16:09 Pulse Ox 100 08/10/18 20:06 <Ok Mercado - Last Filed: 08/11/18 16:51> - Home Medications Home Medications: Ambulatory Orders Medication Instructions Recorded Ibuprofen [Motrin] 600 mg PO Q6 PRN #10 tab 03/13/15 Ibuprofen [Motrin Tab] 800 mg PO Q8 PRN #20 tab 06/28/15 Ciprofloxacin/Ciprofloxa HCl 500 mg PO Q12 #14 tab 12/30/15 [Ciprofloxacin] traMADol [Ultram] 50 mg PO Q6 #16 tab 12/30/15 Ibuprofen [Motrin] 400 mg PO Q6 #30 tab 05/05/16 Tamsulosin HCl [Flomax] 0.4 mg PO DAILY #12 cap.er.24h 05/05/16 RX: Dextromethorphan HBr [Cough 15 mg PO BID #16 capsule 08/04/16 Control] Ibuprofen [Motrin Tab] 800 mg PO Q6H PRN #20 tab 05/12/17 Silver Sulfadiazine 1% 20 gm 1 ea TOP BID #2 tube 05/12/17 [Silvadene] Azithromycin [Zithromax Tri-Mino] 500 mg PO DAILY #3 tablet 08/13/17 Promethazine/Codeine 5 ml PO Q12 PRN #100 ml 08/13/17 [Codeine/Promethazine 10 MG/5 Ml-6.25 MG/5 Ml] RX: Albuterol HFA [Ventolin HFA 90 2 puff IH [id number] PRN #1 inhaler 08/13/17 mcg/actuation (8 g)] RX: Naproxen 1 tab PO Q12 PRN #14 tab 08/13/17 RX: predniSONE [predniSONE Tab] 2 tab PO DAILY #10 tab 08/13/17 Promethazine/Codeine 5 ml PO Q12 PRN #100 ml 09/09/17 [Codeine/Promethazine 10 MG/5 Ml-6.25 MG/5 Ml] RX: Albuterol HFA [Ventolin HFA 90 2 puff IH [id number] PRN #1 inhaler 09/09/17 mcg/actuation (8 g)] RX: predniSONE [predniSONE Tab] 2 tab PO DAILY #10 tab 09/09/17 Silver Sulfadiazine 1% 20 gm 1 ea TOP BID #2 tube 09/13/17 [Silvadene] Benzonatate [Tessalon Perle] 100 mg PO Q8 PRN #10 capsule 12/08/17 Fluticasone Propionate [Flonase] 2 spr NS DAILY PRN #1 bottle 12/08/17 Ibuprofen [Motrin] 600 mg PO Q6 PRN #15 tab 04/02/18 Levofloxacin [Levaquin] 500 mg PO DAILY #7 tablet 02/07/18 Diclofenac Epolamine [Flector] 1 each TD BID #30 patch 05/01/18 Metaxalone [Skelaxin] 800 mg PO TID PRN #20 tablet 05/01/18 RX: traMADol [Ultram] 50 mg PO Q6H PRN #15 tab 05/01/18 Ciprofloxacin [Cipro] 500 mg PO BID #14 tab 06/28/18 Naproxen [Naprosyn] 500 mg PO BID PRN #14 tablet 06/28/18 - Allergies Allergies/Adverse Reactions: Allergies Allergy/AdvReac Type Severity Reaction Status Date / Time strawberry Allergy RASH Verified 06/28/18 17:32 SEAFOOD Allergy RASH Uncoded 06/28/18 17:32 seafood Allergy RASH Uncoded 06/28/18 17:32 Review of Systems ROS Statement: Except As Marked, All Systems Reviewed And Found Negative Constitutional: Negative for: Sweats ENT: Positive for: Throat Pain Respiratory: Positive for: Cough Gastrointestinal: Negative for: Abdominal Pain Genitourinary Female: Negative for: Dysuria, Frequency, Incontinence Musculoskeletal: Positive for: Back Pain Psych: Negative for: Suicidal ideation (homicidal ideation) <Nilam Briggs S - Last Filed: 08/10/18 20:04> Physical Exam - Reviewed Nursing Documentation Reviewed: Yes Vital Signs Reviewed: Yes - Physical Exam Appears: Positive for: Well, Non-toxic, No Acute Distress Head Exam: Positive for: ATRAUMATIC, NORMAL INSPECTION, NORMOCEPHALIC Skin: Positive for: Normal Color, Warm, Dry. Negative for: Rash Eye Exam: Positive for: Normal appearance ENT: Positive for: Nasal Congestion, Pharyngeal Erythema (mild), Other (no trimus). Negative for: Tonsillar Exudate, Tonsillar Swelling Cardiovascular/Chest: Positive for: Regular Rate, Rhythm. Negative for: Murmur Respiratory: Positive for: Normal Breath Sounds. Negative for: Decreased Breath Sounds, Wheezing, Respiratory Distress Neurologic/Psych: Positive for: Alert, Oriented (x3). Negative for: Motor/Sensory Deficits <Nilam Briggs - Last Filed: 08/10/18 20:04> - ECG O2 Sat by Pulse Oximetry: 100 (RA) Pulse Ox Interpretation: Normal <Nilam Briggs S - Last Filed: 08/10/18 20:04> Medical Decision Making Medical Decision Making: Time: 1435 --Urine --Motrin 600mg --Throat Culture --Rapid Strep Group A Antigen --Reevaluation Rapid Strep Group A Antigen results are negative Pt. well appearing, nontoxic, tolerating po. Scribe Attestation: Documented by Deanne Ramirez, acting as a scribe for Nilam Briggs PA-C. Provider Scribe Attestation: All medical record entries made by the Scribe were at my direction and personally dictated by me. I have reviewed the chart and agree that the record accurately reflects my personal performance of the history, physical exam, medical decision making, and the department course for this patient. I have also personally directed, reviewed, and agree with the discharge instructions and disposition. <Nilam Briggs - Last Filed: 08/10/18 20:04> Disposition - Patient ED Disposition Is Patient to be Admitted: No - Disposition Disposition: Routine/Home Disposition Time: 16:22 <Nilam Briggs - Last Filed: 08/10/18 20:04> <Ok Mercado M - Last Filed: 08/11/18 16:51> - Clinical Impression Clinical Impression: Common cold, Pharyngitis - Disposition Condition: GOOD Instructions: Viral Pharyngitis, Viral Upper Respiratory Infection, Adult (DC) Forms: [employer] (Angolan), [facility] ED School/Work Excuse Addendum Addendum: 08/11/18 16:51 Reviewed PA chart and agree. <Ok Mercado - Last Filed: 08/11/18 16:51>
[2018-08-10 16:10] VITALS: BP 112/70; PULSE 89; RESP 18; TEMP 98
[2018-08-10 16:24] VITALS: O2SAT 100
== END 2018-08-10 16:09 | disposition home or self-care (01) ==
LOC: H.ER 13:56
DX: J02.9 Acute pharyngitis, unspecified (principal); J00 Acute nasopharyngitis [common cold]; F17.210 Nicotine dependence, cigarettes, uncomplicated

== ENCOUNTER 2018-11-30 17:30 | Emergency (ER) | payer OTHER ==
[2018-11-30 17:30] VITALS: BMI 25.4
[2018-11-30 18:08] VITALS: BP 121/82; PULSE 77; RESP 15; TEMP 98.1; O2SAT 97
== END 2018-11-30 21:26 | disposition left against medical advice (07) ==
LOC: H.ER 17:30
DX: Z02.89 Encounter for other administrative examinations (principal)

== ENCOUNTER 2019-01-01 16:17 | Emergency (ER) | payer OTHER ==
[2019-01-01 16:17] VITALS: BMI 25.4
[2019-01-01 16:24] VITALS: BP 125/82; PULSE 79; RESP 18; TEMP 99.1; O2SAT 100
--- NOTE | 2019-01-01 16:49 | ED PDOC ---
Lower Extremity Pain/Injury Time Seen by Provider: 01/01/19 16:35 Chief Complaint (Nursing): Lower Extremity Problem/Injury Chief Complaint (Provider): Lower Extremity Problem/Injury History Per: Patient History/Exam Limitations: no limitations Onset/Duration Of Symptoms: Hrs (12x hours) Current Symptoms Are (Timing): Still Present Severity: Moderate Additional Complaint(s): 23 year old female with no pertinent past medical history presents to the ED for an evaluation of left knee pain status post fall that occurred last night 12x hours prior to arrival. Patient states that she was on the bottom step of a staircase when she fell and twisted her left knee. Patient reports having moderate pain with difficulty bending her left knee. Patient is able to ambulate with pain. Patient further notes having a cough and nasal congestion for 2x days. Patient reports taking tylenol with no relief. PMD: None provided. - Knee Description Of Injury: Fell (fell off of bottom step, twisting left knee) Past Medical History Reviewed: Historical Data, Nursing Documentation, Vital Signs Vital Signs: Last Vital Signs Temp 99.1 F 01/01/19 16:22 Pulse 79 01/01/19 16:22 Resp 18 01/01/19 16:22 BP 125/82 01/01/19 16:22 Pulse Ox 100 01/01/19 16:22 SHARLENE Report Viewed: Yes - Medical History PMH: Asthma, Kidney Stones - Family History Family History: States: No Known Family Hx - Social History Current smoker - smoking cessation education provided: Yes Alcohol: Social Drugs: Denies - Immunization History Hx Tetanus Toxoid Vaccination: Yes - Home Medications Home Medications: Ambulatory Orders Medication Instructions Recorded Ibuprofen [Motrin] 600 mg PO Q6 PRN #10 tab 03/13/15 Ibuprofen [Motrin Tab] 800 mg PO Q8 PRN #20 tab 06/28/15 Ciprofloxacin/Ciprofloxa HCl 500 mg PO Q12 #14 tab 12/30/15 [Ciprofloxacin] traMADol [Ultram] 50 mg PO Q6 #16 tab 12/30/15 Ibuprofen [Motrin] 400 mg PO Q6 #30 tab 05/05/16 Tamsulosin HCl [Flomax] 0.4 mg PO DAILY #12 cap.er.24h 05/05/16 RX: Dextromethorphan HBr [Cough 15 mg PO BID #16 capsule 08/04/16 Control] Ibuprofen [Motrin Tab] 800 mg PO Q6H PRN #20 tab 05/12/17 Silver Sulfadiazine 1% 20 gm 1 ea TOP BID #2 tube 05/12/17 [Silvadene] Azithromycin [Zithromax Tri-Mino] 500 mg PO DAILY #3 tablet 08/13/17 Promethazine/Codeine 5 ml PO Q12 PRN #100 ml 08/13/17 [Codeine/Promethazine 10 MG/5 Ml-6.25 MG/5 Ml] RX: Albuterol HFA [Ventolin HFA 90 2 puff IH [id number] PRN #1 inhaler 08/13/17 mcg/actuation (8 g)] RX: Naproxen 1 tab PO Q12 PRN #14 tab 08/13/17 RX: predniSONE [predniSONE Tab] 2 tab PO DAILY #10 tab 08/13/17 Promethazine/Codeine 5 ml PO Q12 PRN #100 ml 09/09/17 [Codeine/Promethazine 10 MG/5 Ml-6.25 MG/5 Ml] RX: Albuterol HFA [Ventolin HFA 90 2 puff [id number] [id number] PRN #1 inhaler 09/09/17 mcg/actuation (8 g)] RX: predniSONE [predniSONE Tab] 2 tab PO DAILY #10 tab 09/09/17 Silver Sulfadiazine 1% 20 gm 1 ea TOP BID #2 tube 09/13/17 [Silvadene] Benzonatate [Tessalon Perle] 100 mg PO Q8 PRN #10 capsule 12/08/17 Fluticasone Propionate [Flonase] 2 spr NS DAILY PRN #1 bottle 12/08/17 Ibuprofen [Motrin] 600 mg PO Q6 PRN #15 tab 02/07/18 Levofloxacin [Levaquin] 500 mg PO DAILY #7 tablet 02/07/18 Diclofenac Epolamine [Flector] 1 each TD BID #30 patch 05/01/18 Metaxalone [Skelaxin] 800 mg PO TID PRN #20 tablet 05/01/18 RX: traMADol [Ultram] 50 mg PO Q6H PRN #15 tab 05/01/18 Ciprofloxacin [Cipro] 500 mg PO BID #14 tab 06/28/18 Naproxen [Naprosyn] 500 mg PO BID PRN #14 tablet 06/28/18 RX: Naproxen 375 mg PO Q8 PRN #21 tablet 01/01/19 RX: Pseudoephedrine [Sudafed Tab] 60 mg PO Q6 PRN #24 tab 01/01/19 - Allergies Allergies/Adverse Reactions: Allergies Allergy/AdvReac Type Severity Reaction Status Date / Time strawberry Allergy RASH Verified 01/01/19 16:21 SEAFOOD Allergy RASH Uncoded 01/01/19 16:21 seafood Allergy RASH Uncoded 01/01/19 16:21 Review of Systems ROS Statement: Except As Marked, All Systems Reviewed And Found Negative ENT: Positive for: Nose Congestion Respiratory: Positive for: Cough Musculoskeletal: Positive for: Other (left knee pain) Physical Exam - Reviewed Nursing Documentation Reviewed: Yes Vital Signs Reviewed: Yes - Physical Exam Appears: Positive for: Well, Non-toxic, No Acute Distress Head Exam: Positive for: ATRAUMATIC, NORMOCEPHALIC Skin: Positive for: Normal Color, Warm, Dry Eye Exam: Positive for: Normal appearance ENT: Positive for: Nasal Congestion Cardiovascular/Chest: Positive for: Regular Rate, Rhythm Respiratory: Positive for: Normal Breath Sounds (lungs clear to auscultation) Extremity: Positive for: Other (left knee: tenderness medially with mild effusion noted. patient able to flex and extend, but ROM is limited due to pain. left ankle: (-) tenderness, (-) swelling, (-) ecchymosis.) Neurologic/Psych: Positive for: Alert, Oriented (3x) - ECG O2 Sat by Pulse Oximetry: 100 (RA) Pulse Ox Interpretation: Normal - Progress ED Course And Treament: knee xry left: no fx Placed in knee immobilizer. Refused crutches but will take them home. Medical Decision Making Medical Decision Makin:35 Initial impression: 23 year old female with knee pain Initial plan: * XRay knee left 3 views * toradol 30 mg IM * reevaluation Scribe Attestation: Documented Izabella Dave, acting as a scribe for Abram Genao PA-C. Provider Scribe Attestation: All medical record entries made by the Scribe were at my direction and personally dictated by me. I have reviewed the chart and agree that the record accurately reflects my personal performance of the history, physical exam, med [facility] decision making, and the department course for this patient. I have also personally directed, reviewed, and agree with the discharge instructions and disposition. Disposition - Clinical Impression Clinical Impression: Knee injury, Upper respiratory infection - Patient ED Disposition Is Patient to be Admitted: No - Disposition Referrals: Akin Arenas III, MD [Staff Provider] - Disposition: Routine/Home Disposition Time: 17:20 Condition: FAIR Prescriptions: RX: Naproxen 375 mg PO Q8 PRN #21 tablet PRN Reason: Pain, Moderate (4-7) RX: Pseudoephedrine [Sudafed Tab] 60 mg PO Q6 PRN #24 tab PRN Reason: Nasal Congestion Instructions: Adenovirus Infections, Knee Sprain (DC) Forms: [facility] ED School/Work Excuse
--- NOTE | 2019-01-02 11:03 | RAD ---
Date of service: 01/01/2019 PROCEDURE: Left Knee Radiographs. HISTORY: Pain. COMPARISON: None. FINDINGS: BONES: No acute fracture or destructive bony lesion identified. 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 JOINT EFFUSION: None. OTHER FINDINGS: None. IMPRESSION: No acute fracture or destructive bony lesion identified. 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
== END 2019-01-01 17:42 | disposition home or self-care (01) ==
LOC: H.ER 16:17
DX: S89.92XA Unspecified injury of left lower leg, initial encounter (principal); W19.XXXA Unspecified fall, initial encounter; J06.9 Acute upper respiratory infection, unspecified; F17.200 Nicotine dependence, unspecified, uncomplicated; Z87.442 Personal history of urinary calculi; J45.909 Unspecified asthma, uncomplicated
CPT/HCPCS: 73562; 81025; 96372; 99285; J1885